=== PATIENT | male | born 1950 | race Hispanic/Latino ===

== ENCOUNTER → 2018-01-03 | Outpatient (CLI) | payer OTHER, MEDICARE ==
[~2018-01-03] MED LIST: ATOR40TA69 PO; FURO40TA5 PO; LISI-617 PO; LORA10TA7 PO; LOVA40TA2 PO; METF500T6 PO; METO50TA18 PO; POTA-79 PO; SPIR50TA3 PO
== END | disposition home or self-care (01) ==
LOC: SHCH 08:13
PROVIDERS: ATTEND Internal Medicine Cardiovascular Disease
DX: I73.9 Peripheral vascular disease, unspecified (principal)
CPT/HCPCS: 93925

== ENCOUNTER → 2018-01-04 | Outpatient (CLI) | payer OTHER, MEDICARE | END | disposition home or self-care (01) | LOC: SHCH 13:15 | PROVIDERS: ATTEND Internal Medicine Cardiovascular Disease | DX: I42.9 Cardiomyopathy, unspecified (principal); I50.9 Heart failure, unspecified; I73.9 Peripheral vascular disease, unspecified | CPT/HCPCS: 93306 ==

== ENCOUNTER → 2018-07-31 | Outpatient (CLI) | payer OTHER ==
[~2018-07-31] MED LIST changes: +METF-444 PO; -METF500T6 PO; -SPIR50TA3 PO; +SPIR50TA5 PO
== END | disposition home or self-care (01) ==
LOC: SHCH 14:08
PROVIDERS: ATTEND Internal Medicine Cardiovascular Disease
DX: I51.7 Cardiomegaly (principal); I50.9 Heart failure, unspecified
CPT/HCPCS: 93306

== ENCOUNTER → 2018-12-14 | Outpatient (CLI) | payer OTHER | END | disposition home or self-care (01) | LOC: SHCH 11:21 | PROVIDERS: ATTEND Internal Medicine Cardiovascular Disease | DX: I51.7 Cardiomegaly (principal); R06.09 Other forms of dyspnea; I20.9 Angina pectoris, unspecified; Z98.890 Other specified postprocedural states; Z95.1 Presence of aortocoronary bypass graft | CPT/HCPCS: 93306 ==

== ENCOUNTER → 2018-12-17 | Outpatient (CLI) | payer OTHER | END | disposition home or self-care (01) | LOC: SHCH 10:49 | PROVIDERS: ATTEND Internal Medicine Cardiovascular Disease | DX: I73.9 Peripheral vascular disease, unspecified (principal) | CPT/HCPCS: 93925 ==

== ENCOUNTER → 2018-12-20 | Outpatient (CLI) | payer OTHER ==
[~2018-12-20] MED LIST changes: +REGADENOSON 0.4 MG/5 ML PF SYG IVP SCH
== END | disposition home or self-care (01) ==
LOC: SHCH 08:29
PROVIDERS: ATTEND Internal Medicine Cardiovascular Disease
DX: I20.9 Angina pectoris, unspecified (principal); R06.09 Other forms of dyspnea
CPT/HCPCS: 78452; 93017; 96374; A9500 ×2; J2785 ×2

== ENCOUNTER → 2020-07-10 | Outpatient (CLI) | payer OTHER, MEDICARE | END | disposition home or self-care (01) | LOC: SHCH 08:01 | PROVIDERS: ATTEND Internal Medicine Cardiovascular Disease | DX: I25.89 Other forms of chronic ischemic heart disease (principal); I25.10 Atherosclerotic heart disease of native coronary artery without angina pectoris | CPT/HCPCS: 78452; 93017; 96374; A9500 ×2; J2785 ==

== ENCOUNTER → 2020-07-27 | Outpatient (CLI) | payer OTHER, MEDICARE ==
[~2020-07-27] MED LIST changes: -REGADENOSON 0.4 MG/5 ML PF SYG IVP SCH
== END | disposition home or self-care (01) ==
LOC: RAH 09:12
PROVIDERS: ATTEND Internal Medicine Cardiovascular Disease
DX: I25.5 Ischemic cardiomyopathy (principal)
CPT/HCPCS: 93306; 93356

== ENCOUNTER 2020-09-28 05:54 | Observation (INO) | payer OTHER, MEDICARE ==
[2020-09-25 11:19] LABS: BASOPHILS % (AUTO) 0.6 % (0.0-5.0); EOSINOPHILS % (AUTO) 4.4 % (0.0-8.0); HEMATOCRIT 37.6 % (42-54); LYMPHOCYTES % (AUTO) 20.5 % (21.0-51.0); MEAN CORPUSCULAR HEMOGLOBIN 28.5 pg (27.0-33.0); MEAN CORPUSCULAR HGB CONC 32.2 g/dL (32.0-36.0); MEAN CORPUSCULAR VOLUME 88.7 fL (79-99); MONOCYTES % (AUTO) 8.2 % (3.0-13.0); NEUTROPHILS % (AUTO) 66.1 % (40.0-77.0); PLATELET COUNT (AUTO) 192 K/uL (130-400); RED BLOOD CELL COUNT(AUTO) 4.24 MIL/uL (4.50-6.20); RED CELL DISTRIBUTION WIDTH 13.8 % (11.0-15.5); WHITE BLOOD COUNT (AUTO) 5.3 K/uL (4.8-10.8)
[2020-09-25 11:25] LABS: CREATININE 1.2 mg/dL (0.5-1.5); POTASSIUM 4.5 mmol/L (3.5-5.1)
[2020-09-25 11:39] LABS: INR 1.72 (0.85-1.15); PARTIAL THROMBOPLASTIN TIME 32.9 SEC (26.3-35.5); PROTHROMBIN TIME 18.2 SEC (9.6-11.6)
[2020-09-25 15:52] VITALS: BP 93/64
[~2020-09-28] VITALS: Ht 168.9 cm; Wt 102.6 kg
[2020-09-28] VITALS (11 sets, daily range): BP systolic 87–102; BP diastolic 50–68
[~2020-09-28 05:54] MED LIST changes: +ASPI-1443 PO; -ATOR40TA69 PO; +FURO20TA4 PO; -FURO40TA5 PO; -LISI-617 PO; -LORA10TA7 PO; -LOVA40TA2 PO; +METO-408 PO; -METO50TA18 PO; +METO5TAB7 PO; +MONT10TA96 PO; +NITR0.4T50 SL; +OMEP40CA13 PO; -POTA-79 PO; +ROSU5TAB12 PO; +SACU1TAB PO; +WARF-57 PO; +gabapentin PO
[2020-09-28] MEDS ORDERED: CEFAZOLIN SODIUM 1 GM VIAL IVP SCH (06:00)
[2020-09-28] MEDS ORDERED: SODIUM CHLORIDE 0.9% 1000ML 1,000 ML IV ONE (06:21)
[2020-09-28 06:46] LABS: INR 1.25 (0.85-1.15); PROTHROMBIN TIME 13.4 SEC (9.6-11.6)
[2020-09-28] MEDS ORDERED: CEFAZOLIN SODIUM 1 GM VIAL ONE (07:23)
[2020-09-28] MEDS ORDERED: MIDAZOLAM HCL 1 MG/ML 2ML VIAL ONE ×2 (07:23→08:14)
[2020-09-28] MEDS ORDERED: BUPIVACAINE/PF 0.25% 30ML VIAL IJ ONE (07:23)
[2020-09-28] MEDS ORDERED: LIDOCAINE HCL 1% MDV 50ML VIAL ONE (07:24)
[2020-09-28] MEDS ORDERED: MEPERIDINE-PF 25 MG/ML SYG ONE ×2 (07:24→08:14)
[2020-09-28] MEDS ORDERED: IODIXANOL 320 MG/ML 100 ML VIAL ONE (07:44)
[2020-09-28] MEDS ORDERED: ACETAMINOPHEN-CODEINE 300/30MG TAB PO PRN (10:00)
[2020-09-28] MEDS: VALSARTAN PO SCH ×2 (10:43→19:49)
[2020-09-28] MEDS: SACUBITRIL PO SCH ×2 (10:43→19:49)
[2020-09-28] MEDS: METOPROLOL SUCCINATE 12.5 MG PO SCH (10:49)
[2020-09-28] MEDS: GABAPENTIN 300 MG CAPSULE PO SCH ×2 (16:05→19:49)
[2020-09-28] MEDS: PANTOPRAZOLE SODIUM 40 MG TABLET.DR PO SCH (16:06)
[2020-09-28] MEDS: SPIRONOLACTONE 25 MG TAB PO SCH (16:06)
[2020-09-28] MEDS ORDERED: WARFARIN SODIUM 5 MG TAB PO SCH (17:00)
[2020-09-28] MEDS ORDERED: MONTELUKAST SODIUM 10 MG TAB PO SCH (21:00)
[2020-09-29 00:36] VITALS: BP 114/65
[2020-09-29 03:51] VITALS: BP 105/62
[2020-09-29 06:22] LABS: BASOPHILS % (AUTO) 0.5 % (0.0-5.0); EOSINOPHILS % (AUTO) 4.1 % (0.0-8.0); HEMATOCRIT 36.8 % (42-54); LYMPHOCYTES % (AUTO) 18.3 % (21.0-51.0); MEAN CORPUSCULAR HEMOGLOBIN 28.2 pg (27.0-33.0); MEAN CORPUSCULAR HGB CONC 32.6 g/dL (32.0-36.0); MEAN CORPUSCULAR VOLUME 86.6 fL (79-99); MONOCYTES % (AUTO) 10.7 % (3.0-13.0); NEUTROPHILS % (AUTO) 66.1 % (40.0-77.0); PLATELET COUNT (AUTO) 203 K/uL (130-400); RED BLOOD CELL COUNT(AUTO) 4.25 MIL/uL (4.50-6.20); RED CELL DISTRIBUTION WIDTH 13.5 % (11.0-15.5); WHITE BLOOD COUNT (AUTO) 5.9 K/uL (4.8-10.8)
[2020-09-29 06:31] LABS: POTASSIUM 3.8 mmol/L (3.5-5.1)
[2020-09-29 07:07] LABS: INR 1.14 (0.85-1.15); PROTHROMBIN TIME 12.3 SEC (9.6-11.6)
[2020-09-29] MEDS: SPIRONOLACTONE 25 MG TAB PO SCH (08:08)
[2020-09-29] MEDS: PANTOPRAZOLE SODIUM 40 MG TABLET.DR PO SCH (08:08)
[2020-09-29] MEDS: GABAPENTIN 300 MG CAPSULE PO SCH (08:08)
[2020-09-29] MEDS ORDERED: METOLAZONE 2.5 MG TABLET PO SCH (08:30)
[2020-09-29 08:36] VITALS: BP 112/72
[2020-09-29] MEDS ORDERED: ASPIRIN 81 MG EC TAB PO SCH (09:00)
[2020-09-29] MEDS: SACUBITRIL PO SCH (09:00)
[2020-09-29] MEDS: METOPROLOL SUCCINATE 12.5 MG PO SCH (09:00)
[2020-09-29] MEDS ORDERED: FUROSEMIDE 20 MG TABLET PO SCH (09:00)
[2020-09-29] MEDS ORDERED: ATORVASTATIN CALCIUM 10 MG TABLET PO SCH (09:00)
[2020-09-29] MEDS ORDERED: SPIRONOLACTONE 25 MG PO SCH (09:00)
[2020-09-29] MEDS: VALSARTAN PO SCH (09:00)
[2020-09-29 13:08] VITALS: BP 110/59
== END 2020-09-29 15:30 | disposition home or self-care (01) ==
LOC: DAH 05:54 → 4DH 05:55 → DAH 05:55
PROVIDERS: ADMIT Internal Medicine; ATTEND Internal Medicine
DX: I49.5 Sick sinus syndrome (principal); I25.5 Ischemic cardiomyopathy; I11.0 Hypertensive heart disease with heart failure; I50.22 Chronic systolic (congestive) heart failure; I48.0 Paroxysmal atrial fibrillation; I45.10 Unspecified right bundle-branch block; I25.2 Old myocardial infarction; I25.10 Atherosclerotic heart disease of native coronary artery without angina pectoris; E78.5 Hyperlipidemia, unspecified; E11.9 Type 2 diabetes mellitus without complications; Z87.891 Personal history of nicotine dependence; Z86.73 Personal history of transient ischemic attack (TIA), and cerebral infarction without residual deficits; Z95.1 Presence of aortocoronary bypass graft; Z95.5 Presence of coronary angioplasty implant and graft; Z79.899 Other long term (current) drug therapy
CPT/HCPCS: 33208; 33225; 36415 ×3; 71045; 80048 ×2; 82948 ×6; 85025 ×2; 85610 ×3; 85730; 96360; 96361 ×2; A4215; A4216; A4221; A4222; A4223 ×3; A4606; A4663; C1769; C1898 ×2; C1900; C2621; G0378 ×29; J0690; J2175 ×2; J2250 ×2; J3490 ×2; J7030; Q9967; 99156; 99157

== ENCOUNTER 2020-11-10 07:28 | Day surgery (SDC) | payer OTHER, MEDICARE ==
[~2020-11-10] VITALS: Ht 167.6 cm; Wt 97.5 kg
[2020-11-10] VITALS (9 sets, daily range): BP systolic 80–126; BP diastolic 52–61
[2020-11-10] MEDS ORDERED: VITAD50000 PO (09:03)
[2020-11-10] MEDS ORDERED: SITA50TA PO (09:03)
[2020-11-10] MEDS ORDERED: FERROUS SULFATE PO (09:03)
[2020-11-10 09:09] LABS: INR 1.34 (0.85-1.15)
[2020-11-10] MEDS ORDERED: SODIUM CHLORIDE 0.9% 1000ML 1,000 ML IV ONE (09:09)
[2020-11-10] MEDS ORDERED: PROPOFOL 10 MG/ML 20ML VIAL IV ONE (09:52)
[2020-11-10] MEDS ORDERED: EPHEDRINE SULFATE 50 MG/ML AMPULE ONE (10:40)
== END 2020-11-10 11:35 | disposition home or self-care (01) ==
LOC: DAH 07:28 → ENDO 07:28
PROVIDERS: ATTEND Internal Medicine
DX: R19.5 Other fecal abnormalities (principal); K59.00 Constipation, unspecified; Z20.828 Contact with and (suspected) exposure to other viral communicable diseases; K57.30 Diverticulosis of large intestine without perforation or abscess without bleeding; K29.50 Unspecified chronic gastritis without bleeding; K21.9 Gastro-esophageal reflux disease without esophagitis; K31.89 Other diseases of stomach and duodenum; D64.9 Anemia, unspecified; I10 Essential (primary) hypertension; E11.9 Type 2 diabetes mellitus without complications; E78.49 Other hyperlipidemia; I48.0 Paroxysmal atrial fibrillation; I25.10 Atherosclerotic heart disease of native coronary artery without angina pectoris; I25.2 Old myocardial infarction; E78.00 Pure hypercholesterolemia, unspecified; Z79.899 Other long term (current) drug therapy; Z79.01 Long term (current) use of anticoagulants; Z86.010 Personal history of colon polyps; Z98.890 Other specified postprocedural states; Z95.1 Presence of aortocoronary bypass graft; Z86.73 Personal history of transient ischemic attack (TIA), and cerebral infarction without residual deficits; Z79.4 Long term (current) use of insulin; Z79.82 Long term (current) use of aspirin
CPT/HCPCS: 36415; 43239; 45378; 82948 ×2; 85610; 93005; A4215 ×2; A4221; A4222; A4223; A4606; A4620; A4657; A4663; C9803; J2704; J3490; J7030; U0003

== ENCOUNTER → 2020-12-03 | Outpatient (CLI) | payer OTHER, MEDICARE ==
[~2020-12-03] MED LIST changes: +FERROUS SULFATE PO; -METF-444 PO; +SITA50TA PO; +VITAD50000 PO
== END | disposition home or self-care (01) ==
LOC: RAH 11:28
PROVIDERS: ATTEND Internal Medicine Gastroenterology
DX: R14.0 Abdominal distension (gaseous) (principal)
CPT/HCPCS: 78264; A9541

== ENCOUNTER 2022-01-25 14:36 | Emergency (ER) | payer MEDICARE ==
[~2022-01-25] VITALS: Ht 167.6 cm; Wt 94.3 kg
[~2022-01-25 14:36] MED LIST changes: +MONT-39 PO; -MONT10TA96 PO; -OMEP40CA13 PO; +OMEP40CA21 PO
[2022-01-25 15:22] LABS: BASOPHILS % (AUTO) 0.8 % (0.0-5.0); EOSINOPHILS % (AUTO) 3.1 % (0.0-8.0); HEMATOCRIT 40.4 % (42-54); LYMPHOCYTES % (AUTO) 14.9 % (21.0-51.0); MEAN CORPUSCULAR HEMOGLOBIN 26.7 pg (27.0-33.0); MEAN CORPUSCULAR HGB CONC 32.9 g/dL (32.0-36.0); MEAN CORPUSCULAR VOLUME 81.1 fL (79-99); MONOCYTES % (AUTO) 14.4 % (3.0-13.0); NEUTROPHILS % (AUTO) 66.2 % (40.0-77.0); PLATELET COUNT (AUTO) 204 K/uL (130-400); RED BLOOD CELL COUNT(AUTO) 4.98 MIL/uL (4.50-6.20); RED CELL DISTRIBUTION WIDTH 16.1 % (11.0-15.5); WHITE BLOOD COUNT (AUTO) 5.2 K/uL (4.8-10.8)
[2022-01-25 15:34] LABS: CREATININE 1.6 mg/dL (0.5-1.5); POTASSIUM 3.9 mmol/L (3.5-5.1)
[2022-01-25 15:38] LABS: ALBUMIN 3.5 g/dL (3.5-5.0); BILIRUBIN,TOTAL 3.3 mg/dL (0.2-1.0); TOTAL PROTEIN, SERUM 6.4 g/dL (6.0-8.3)
[2022-01-25] MEDS ORDERED: FUROSEMIDE 40MG VIAL ONE (15:38)
[2022-01-25 15:46] LABS: B-TYPE NATRIURETIC PEPTIDE 349 pg/mL (0-100)
[2022-01-25] MEDS ORDERED: FUROSEMIDE 40MG VIAL IV ONE (16:00)
[2022-01-25 16:02] VITALS: BP 100/62
== END 2022-01-25 16:45 | disposition home or self-care (01) ==
LOC: EDH 14:36
DX: I11.0 Hypertensive heart disease with heart failure (principal); I50.9 Heart failure, unspecified; E11.9 Type 2 diabetes mellitus without complications; E78.00 Pure hypercholesterolemia, unspecified; Z79.899 Other long term (current) drug therapy; Z79.82 Long term (current) use of aspirin; Z79.01 Long term (current) use of anticoagulants; Z95.1 Presence of aortocoronary bypass graft
CPT/HCPCS: 36415; 71045; 80053; 83880; 84484; 85025; 87635; 93005; 96374; 99285; C9803; J1940

== ENCOUNTER 2022-06-14 09:39 | Observation (INO) | payer MEDICARE ==
[~2022-06-14] VITALS: Ht 170.2 cm; Wt 92.4 kg
[2022-06-14 11:08] LABS: HEMATOCRIT 43.1 % (42-54); MEAN CORPUSCULAR HEMOGLOBIN 27.1 pg (27.0-33.0); MEAN CORPUSCULAR HGB CONC 32.3 g/dL (32.0-36.0); PLATELET COUNT (AUTO) 151 K/uL (130-400); RED BLOOD CELL COUNT(AUTO) 5.13 MIL/uL (4.50-6.20); RED CELL DISTRIBUTION WIDTH 18.1 % (11.0-15.5); WHITE BLOOD COUNT (AUTO) 5.2 K/uL (4.8-10.8)
[2022-06-14] MEDS ORDERED: FAMO20TA8 PO (11:17)
[2022-06-14] MEDS ORDERED: SITA50TA PO (11:17)
[2022-06-14] MEDS ORDERED: FURO20TA4 PO (11:17)
[2022-06-14] MEDS ORDERED: CETI10TA57 PO (11:17)
[2022-06-14] MEDS ORDERED: ROSU10TA28 PO (11:17)
[2022-06-14] MEDS ORDERED: LUBI24CA9 PO (11:17)
[2022-06-14] MEDS ORDERED: SPIR25TA6 PO (11:17)
[2022-06-14] MEDS ORDERED: IBUP-2070 PO (11:17)
[2022-06-14 11:20] LABS: APPEARANCE,URINE CLEAR (CLEAR); BILIRUBIN,URINE NEGATIVE (NEGATIVE); COLOR,URINE YELLOW (YELLOW); GLUCOSE, URINE (UA) NEGATIVE (NEGATIVE); KETONES,URINE NEGATIVE (NEGATIVE); LEUKOCYTE ESTERASE ,URINE NEGATIVE (NEGATIVE); NITRATE,URINE NEGATIVE (NEGATIVE); OCCULT BLOOD,URINE TRACE-INTACT (NEGATIVE); PROTEIN,URINE TRACE mg/dL (NEGATIVE); UROBILINOGEN,URINE 0.2 mg/dL (0.2-1.0)
[2022-06-14 11:24] LABS: B-TYPE NATRIURETIC PEPTIDE 451 pg/mL (0-100)
[2022-06-14 11:26] LABS: BACTERIA,URINE Rare /HPF (None Seen); RBC,URINE 0-1 /HPF (0-1); SQUAMOUS EPITHELIAL CELL,UR Rare /HPF (0-2); WBC,URINE 0-1 /HPF (0-1)
[2022-06-14 11:26] LABS: CREATININE 1.4 mg/dL (0.5-1.5); POTASSIUM 3.6 mmol/L (3.5-5.1)
[2022-06-14] MEDS ORDERED: LACTULOSE 20 GM/30 ML UDCUP PO PRN (11:30)
[2022-06-14] MEDS ORDERED: ACETAMINOPHEN 325 MG TAB PO PRN ×2 (11:30)
[2022-06-14] MEDS ORDERED: NITROGLYCERIN 0.4 MG SL TAB SL PRN (11:30)
[2022-06-14] MEDS ORDERED: MAG/ALUM/SIMETH 30 ML UDCUP PO PRN (11:30)
[2022-06-14] MEDS ORDERED: ONDANSETRON 4MG INJ IV PRN (11:30)
[2022-06-14] MEDS ORDERED: DiphenhydrAMINE HCL 50 MG/ML VIAL IV PRN (11:30)
[2022-06-14] MEDS ORDERED: GUAIFENESIN-DM 200/20 MG 10 ML PO PRN (11:30)
[2022-06-14 11:38] LABS: ALBUMIN 3.8 g/dL (3.5-5.0); TOTAL PROTEIN, SERUM 7.2 g/dL (6.0-8.3)
[2022-06-14 13:03] LABS: INR 2.2 (0.85-1.15); PROTHROMBIN TIME 22.9 SEC (9.6-11.6)
[2022-06-14 13:04] LABS: PARTIAL THROMBOPLASTIN TIME 33.2 SEC (26.3-35.5)
[2022-06-14 14:25] VITALS: BP 102/71
[2022-06-14 16:45] VITALS: BP 112/71
[2022-06-14] MEDS ORDERED: FUROSEMIDE 40MG VIAL IV ONE (17:56)
[2022-06-14] MEDS ORDERED: NON-FORMULARY MEDICATION 1 EACH (Metolazone 5 MG) PO SCH (18:00)
[2022-06-14] MEDS: [UNRECOGNIZED DRUG - REMARK] MISC SCH ×3 (18:30→20:30)
[2022-06-14] MEDS ORDERED: GLUCAGON 1MG KIT 1 MG ML IM PRN (18:30)
[2022-06-14] MEDS ORDERED: DEXTROSE 50%-WATER 50 ML DISP.SYRIN IV PRN (18:30)
[2022-06-14 19:26] VITALS: BP 112/62
[2022-06-14] MEDS: GABAPENTIN 300 MG CAPSULE PO SCH (19:57)
[2022-06-14] MEDS: FAMOTIDINE 20MG TAB PO SCH (19:58)
[2022-06-14] MEDS ORDERED: FUROSEMIDE 20 MG TABLET PO SCH (21:00)
[2022-06-14] MEDS: INSULIN HUMULIN R 100 UNIT/ML 3ML SQ SCH (21:00)
[2022-06-14 23:24] VITALS: BP 120/72
[2022-06-15 03:19] VITALS: BP 111/90
[2022-06-15 04:59] LABS: HEMOGLOBIN A1C 6.8 % (4.0-6.0)
[2022-06-15] MEDS: INSULIN HUMULIN R 100 UNIT/ML 3ML SQ SCH ×4 (06:22→20:19)
[2022-06-15 06:32] LABS: HEMATOCRIT 34.3 % (42-54); MEAN CORPUSCULAR HEMOGLOBIN 31.6 pg (27.0-33.0); MEAN CORPUSCULAR HGB CONC 37.9 g/dL (32.0-36.0); MEAN CORPUSCULAR VOLUME 83.5 fL (79-99); PLATELET COUNT (AUTO) 164 K/uL (130-400); RED BLOOD CELL COUNT(AUTO) 4.11 MIL/uL (4.50-6.20); RED CELL DISTRIBUTION WIDTH 19.9 % (11.0-15.5); WHITE BLOOD COUNT (AUTO) 4.9 K/uL (4.8-10.8)
[2022-06-15 06:59] LABS: EOSINOPHILS % (MANUAL) 3 % (1-6); LYMPHOCYTES % (MANUAL) 27 % (22-44); MAN.DIFF COMMENT-IMPRESSION MANUAL DIFFERENTIAL; MONOCYTES % (MANUAL) 6 % (2-9); PLATELET MORPHOLOGY COMMENT ADEQUATE; SEGMENTED NEUTROPHILS % 64 % (40-70)
[2022-06-15 07:00] VITALS: BP 96/69
[2022-06-15 07:01] LABS: ALBUMIN 3.5 g/dL (3.5-5.0); CREATININE 1.2 mg/dL (0.5-1.5); POTASSIUM 3.9 mmol/L (3.5-5.1); TOTAL PROTEIN, SERUM 6.6 g/dL (6.0-8.3)
[2022-06-15] MEDS: METOLAZONE 2.5 MG TABLET PO SCH (10:05)
[2022-06-15] MEDS: FAMOTIDINE 20MG TAB PO SCH ×2 (10:05→20:10)
[2022-06-15] MEDS: GABAPENTIN 300 MG CAPSULE PO SCH ×2 (10:05→20:11)
[2022-06-15] MEDS: ATORVASTATIN 20 MG TABLET PO SCH (10:05)
[2022-06-15] MEDS: FUROSEMIDE 40 MG TABLET PO SCH (10:06)
[2022-06-15] MEDS: CETIRIZINE HCL 5 MG TABLET PO SCH (10:06)
[2022-06-15] MEDS: ASPIRIN 81 MG EC TAB PO SCH (10:06)
[2022-06-15] MEDS: METOPROLOL SUCCINATE 25 MG TAB.SR.24H PO SCH ×2 (10:07→10:13)
[2022-06-15] MEDS: [UNRECOGNIZED DRUG - REMARK] MISC SCH (10:08)
[2022-06-15] MEDS: LUBIPROSTONE 24 MCG CAP PO SCH ×2 (10:11→16:10)
[2022-06-15] MEDS: MONTELUKAST SODIUM 10 MG TAB PO SCH (10:12)
[2022-06-15 11:00] VITALS: BP 104/73
[2022-06-15 16:00] VITALS: BP 92/62
[2022-06-15] MEDS ORDERED: WARFARIN SODIUM 5 MG TAB PO SCH (16:00)
[2022-06-15 20:59] VITALS: BP 103/67
[2022-06-16 01:38] VITALS: BP 106/55
[2022-06-16 03:38] VITALS: BP 102/64
[2022-06-16] MEDS: INSULIN HUMULIN R 100 UNIT/ML 3ML SQ SCH ×2 (06:52→10:54)
[2022-06-16 08:30] VITALS: BP 108/71
[2022-06-16] MEDS: LUBIPROSTONE 24 MCG CAP PO SCH (09:11)
[2022-06-16] MEDS: CETIRIZINE HCL 5 MG TABLET PO SCH (09:12)
[2022-06-16] MEDS: FAMOTIDINE 20MG TAB PO SCH (09:12)
[2022-06-16] MEDS: GABAPENTIN 300 MG CAPSULE PO SCH (09:12)
[2022-06-16] MEDS: FUROSEMIDE 40 MG TABLET PO SCH (09:12)
[2022-06-16] MEDS: METOLAZONE 2.5 MG TABLET PO SCH (09:12)
[2022-06-16] MEDS: ATORVASTATIN 20 MG TABLET PO SCH (09:12)
[2022-06-16] MEDS: MONTELUKAST SODIUM 10 MG TAB PO SCH (09:15)
[2022-06-16] MEDS: ASPIRIN 81 MG EC TAB PO SCH (09:15)
[2022-06-16] MEDS: METOPROLOL SUCCINATE 25 MG TAB.SR.24H PO SCH (09:15)
[2022-06-16 12:00] VITALS: BP 105/63
[2022-06-21] MEDS ORDERED: **HM**(Cholecalciferol (Vitamin D3) 50,000 UNITS) PO SCH (09:00)
== END 2022-06-16 13:45 | disposition home or self-care (01) ==
LOC: EDH 09:39 → EDHIP 11:15 → INTOOBSV 11:15 → 2AH 11:45
PROVIDERS: ADMIT Internal Medicine; ATTEND Internal Medicine
DX: K74.60 Unspecified cirrhosis of liver (principal); I11.0 Hypertensive heart disease with heart failure; I50.20 Unspecified systolic (congestive) heart failure; I25.10 Atherosclerotic heart disease of native coronary artery without angina pectoris; I95.9 Hypotension, unspecified; I48.91 Unspecified atrial fibrillation; E11.9 Type 2 diabetes mellitus without complications; E78.5 Hyperlipidemia, unspecified; R18.8 Other ascites; Z79.01 Long term (current) use of anticoagulants; Z95.1 Presence of aortocoronary bypass graft; Z95.810 Presence of automatic (implantable) cardiac defibrillator; Z79.82 Long term (current) use of aspirin
CPT/HCPCS: 96374; 96375; 82550 ×4; 83874 ×4; 84484 ×4; 80053 ×2; 83880; 85027; 85610; 85730; 81001; 36415 ×2; 71045; 76705 ×2; 93005; 83036; 85025; 82948 ×5; J1200; J1940; G0378 ×23; 96361

== ENCOUNTER 2022-08-08 10:53 | Emergency (ER) | payer MEDICARE ==
[~2022-08-08] VITALS: Ht 167.6 cm; Wt 85.3 kg
[~2022-08-08 10:53] MED LIST changes: -ALBUMIN (HUMAN) 25% 200 ML IV SCH
[2022-08-08 11:25] LABS: BASOPHILS % (AUTO) 0.5 % (0.0-5.0); EOSINOPHILS % (AUTO) 0.9 % (0.0-8.0); HEMATOCRIT 46.3 % (42-54); MEAN CORPUSCULAR HEMOGLOBIN 26.1 pg (27.0-33.0); MEAN CORPUSCULAR HGB CONC 33.3 g/dL (32.0-36.0); MEAN CORPUSCULAR VOLUME 78.3 fL (79-99); MONOCYTES % (AUTO) 11.2 % (3.0-13.0); NEUTROPHILS % (AUTO) 74.7 % (40.0-77.0); PLATELET COUNT (AUTO) 157 K/uL (130-400); RED BLOOD CELL COUNT(AUTO) 5.91 MIL/uL (4.50-6.20); RED CELL DISTRIBUTION WIDTH 18.8 % (11.0-15.5); WHITE BLOOD COUNT (AUTO) 5.7 K/uL (4.8-10.8)
[2022-08-08 11:40] LABS: PARTIAL THROMBOPLASTIN TIME 54.5 SEC (26.3-35.5)
[2022-08-08 11:48] LABS: ALBUMIN 3.8 g/dL (3.5-5.0); B-TYPE NATRIURETIC PEPTIDE 879 pg/mL (0-100); CREATININE 2.3 mg/dL (0.5-1.5); POTASSIUM 3.2 mmol/L (3.5-5.1); TOTAL PROTEIN, SERUM 6.8 g/dL (6.0-8.3)
[2022-08-08 12:01] LABS: INR > 7.00 (0.85-1.15)
[2022-08-08 13:41] VITALS: BP 106/74
== END 2022-08-08 13:57 | disposition home or self-care (01) ==
LOC: EDH 10:53
DX: K72.10 Chronic hepatic failure without coma (principal); I11.0 Hypertensive heart disease with heart failure; I50.9 Heart failure, unspecified; E78.00 Pure hypercholesterolemia, unspecified; Z86.73 Personal history of transient ischemic attack (TIA), and cerebral infarction without residual deficits; Z98.890 Other specified postprocedural states; Z79.899 Other long term (current) drug therapy; Z79.84 Long term (current) use of oral hypoglycemic drugs; Z79.01 Long term (current) use of anticoagulants; Z79.82 Long term (current) use of aspirin; W19.XXXA Unspecified fall, initial encounter; Y93.89 Activity, other specified; Y92.89 Other specified places as the place of occurrence of the external cause; Y99.8 Other external cause status
CPT/HCPCS: 49083; 99285; 71045; 82550; 83874; 84484 ×2; 84157; 83880; 85025 ×2; 89051; 85610 ×2; 85730; 87071; 87076; 87205; 82042; 36415 ×2; 93005; 80053 ×2; P9046; C1729; 96365

== ENCOUNTER → 2022-08-08 | Outpatient (CLI) | payer MEDICARE ==
[~2022-08-08] MED LIST changes: +ALBUMIN (HUMAN) 25% 200 ML IV SCH; +CETI10TA57 PO; +FAMO20TA8 PO; +IBUP-2070 PO; +LUBI24CA9 PO; +ROSU10TA28 PO; -ROSU5TAB12 PO; -SACU1TAB PO; -SPIR50TA5 PO
[2022-08-08 08:39] LABS: BASOPHILS % (AUTO) 0.5 % (0.0-5.0); EOSINOPHILS % (AUTO) 0.8 % (0.0-8.0); HEMATOCRIT 50.6 % (42-54); LYMPHOCYTES % (AUTO) 11.8 % (21.0-51.0); MEAN CORPUSCULAR HEMOGLOBIN 25.8 pg (27.0-33.0); MEAN CORPUSCULAR HGB CONC 32.6 g/dL (32.0-36.0); MEAN CORPUSCULAR VOLUME 79.2 fL (79-99); MONOCYTES % (AUTO) 9.5 % (3.0-13.0); NEUTROPHILS % (AUTO) 77.1 % (40.0-77.0); PLATELET COUNT (AUTO) 175 K/uL (130-400); RED BLOOD CELL COUNT(AUTO) 6.39 MIL/uL (4.50-6.20); RED CELL DISTRIBUTION WIDTH 18.9 % (11.0-15.5); WHITE BLOOD COUNT (AUTO) 6.1 K/uL (4.8-10.8)
[2022-08-08 08:47] LABS: ALBUMIN 3.9 g/dL (3.5-5.0); CREATININE 2.2 mg/dL (0.5-1.5); POTASSIUM 3.4 mmol/L (3.5-5.1); TOTAL PROTEIN, SERUM 7.2 g/dL (6.0-8.3)
[2022-08-08 09:28] LABS: INR > 7.00 (0.85-1.15)
[2022-08-08 13:10] LABS: ALBUMIN,BODY FLUID 1.6 g/dL
[2022-08-08 21:35] LABS: APPEARANCE BODY FLUID CLOUDY (CLEAR); BODY FLUID WBC 66 /cu. mm.; COLOR,BODY FLUID ORANGE (LT YELLOW); SPECIMENTYPE,BODY FLUID ASCITES; TOTAL VOLUME,BODY FLUID 2300 mL
[2022-08-08 21:36] LABS: BODY FLUID RBC 20500 /cu. mm.
[2022-08-08 21:52] LABS: BF EOSINOPHIL 1 %; BF LYMPHOCYTE 42 %; BF MONOCYTE 1 %; BF OTHER CELLS 1
== END | disposition home or self-care (01) ==
LOC: RAH 07:45
PROVIDERS: ATTEND Internal Medicine Gastroenterology
DX: R18.8 Other ascites (principal); I11.0 Hypertensive heart disease with heart failure; I50.20 Unspecified systolic (congestive) heart failure; I25.10 Atherosclerotic heart disease of native coronary artery without angina pectoris; I48.91 Unspecified atrial fibrillation; E78.5 Hyperlipidemia, unspecified; E11.9 Type 2 diabetes mellitus without complications; Z79.01 Long term (current) use of anticoagulants; Z95.1 Presence of aortocoronary bypass graft; Z98.890 Other specified postprocedural states; Z79.82 Long term (current) use of aspirin
CPT/HCPCS: 49083; 84157; 80053; 85025; 89051; 85610; 87071; 87076; 87205; 82042; 36415; P9046; C1729; 96365

== ENCOUNTER 2022-09-09 11:13 | Inpatient (IN) | payer MEDICARE ==
[~2022-09-09] VITALS: Ht 167.6 cm; Wt 83.2 kg
[2022-09-09] MEDS ORDERED: NOREPINEPHRIN 4MG/NS 250ML 250 ML IV ONE (11:29)
[2022-09-09] MEDS ORDERED: NACL 0.9% IV PRN (11:30)
[2022-09-09] MEDS ORDERED: EPINEPHRINE IV PRN (11:30)
[2022-09-09] MEDS ORDERED: NOREPINEPHRIN 4MG/NS 250ML 250 ML IV PRN (12:00)
[2022-09-09 12:14] LABS: BASOPHILS % (AUTO) 0.7 % (0.0-5.0); EOSINOPHILS % (AUTO) 0.2 % (0.0-8.0); HEMATOCRIT 46.8 % (42-54); LYMPHOCYTES % (AUTO) 12.3 % (21.0-51.0); MEAN CORPUSCULAR HEMOGLOBIN 25.7 pg (27.0-33.0); MEAN CORPUSCULAR HGB CONC 34.4 g/dL (32.0-36.0); MEAN CORPUSCULAR VOLUME 74.8 fL (79-99); MONOCYTES % (AUTO) 14.7 % (3.0-13.0); NEUTROPHILS % (AUTO) 71.6 % (40.0-77.0); PLATELET COUNT (AUTO) 109 K/uL (130-400); RED BLOOD CELL COUNT(AUTO) 6.26 MIL/uL (4.50-6.20); RED CELL DISTRIBUTION WIDTH 21.5 % (11.0-15.5); WHITE BLOOD COUNT (AUTO) 5.9 K/uL (4.8-10.8)
[2022-09-09 12:25] LABS: INR 2.86 (0.85-1.15); PROTHROMBIN TIME 29.4 SEC (9.6-11.6)
[2022-09-09 12:27] LABS: PARTIAL THROMBOPLASTIN TIME 41.3 SEC (26.3-35.5)
[2022-09-09 12:44] LABS: ALBUMIN 3.5 g/dL (3.5-5.0); CREATININE 1.9 mg/dL (0.5-1.5); POTASSIUM 3.1 mmol/L (3.5-5.1)
[2022-09-09 12:47] LABS: B-TYPE NATRIURETIC PEPTIDE 1410 pg/mL (0-100)
[2022-09-09 15:41] LABS: APPEARANCE,URINE CLEAR (CLEAR); BILIRUBIN,URINE NEGATIVE (NEGATIVE); COLOR,URINE YELLOW (YELLOW); GLUCOSE, URINE (UA) NEGATIVE (NEGATIVE); KETONES,URINE NEGATIVE (NEGATIVE); LEUKOCYTE ESTERASE ,URINE NEGATIVE Leu/uL (NEGATIVE); NITRATE,URINE NEGATIVE (NEGATIVE); OCCULT BLOOD,URINE SMALL (NEGATIVE); PH,URINE 5.5 (5.0-8.0); PROTEIN,URINE 30 mg/dL (NEGATIVE)
[2022-09-09 15:53] LABS: BACTERIA,URINE RARE /HPF (None Seen); MUCUS,URINE RARE LPF (None Seen); SQUAMOUS EPITHELIAL CELL,UR RARE /HPF (0-2)
[2022-09-09] MEDS ORDERED: KCL 20 MEQ ERTAB PO ONE (16:00)
[2022-09-09] MEDS: INSULIN HUMULIN R 100 UNIT/ML 3ML SQ SCH ×2 (16:30→21:00)
[2022-09-09] MEDS ORDERED: IPRATROPIUM/ALBUTEROL SULFATE 3 ML SOLUTION IH PRN (16:30)
[2022-09-09 16:39] LABS: HEMOGLOBIN A1C 6.2 % (4.0-6.0)
[2022-09-09 16:45] LABS: CREATININE,URINE RANDOM 45 mg/dL (30-135); SODIUM,URINE RANDOM 16 mmol/l (40-220)
[2022-09-09 16:54] LABS: CRP QUANTITATIVE 19.2 mg/L (0.00-9.0); MAGNESIUM 2.6 mg/dL (1.80-2.40); THYROID STIMULATING HORMONE 4.99 uIU/mL (0.36-3.74)
[2022-09-09] MEDS: CEFEPIME HCL 2 GM VIAL IVP SCH (17:10)
[2022-09-09] MEDS: PANTOPRAZOLE 40 MG/VIAL IVP SCH (17:10)
[2022-09-09] MEDS: Vitamin B Complex/Vit C/Folic Acid PO SCH (17:11)
[2022-09-09] MEDS ORDERED: AMIODARONE 900MG VIAL 540 MG in DEXTROSE 5%-WATER 300 ML IV SCH (17:30)
[2022-09-09 19:34] LABS: ALBUMIN 3.4 g/dL (3.5-5.0); CREATININE 1.9 mg/dL (0.5-1.5); MAGNESIUM 2.6 mg/dL (1.80-2.40); POTASSIUM 3.2 mmol/L (3.5-5.1)
[2022-09-09] MEDS: ATORVASTATIN 20 MG TABLET PO SCH (21:06)
[2022-09-09] MEDS: MIDODRINE HCL 5 MG TABLET PO SCH (21:06)
[2022-09-10] VITALS (50 sets, daily range): BP systolic 62–113; BP diastolic 34–69
[2022-09-10] MEDS: METRONIDAZOLE 250MG/50ML 50 ML IV SCH ×3 (05:37→21:31)
[2022-09-10] MEDS: INSULIN HUMULIN R 100 UNIT/ML 3ML SQ SCH ×4 (07:30→20:00)
[2022-09-10] MEDS ORDERED: NOREPINEPHRIN 4MG/NS 250ML 250 ML IV SCH (07:30)
[2022-09-10 08:34] LABS: BASOPHILS % (AUTO) 0.5 % (0.0-5.0); EOSINOPHILS % (AUTO) 0.2 % (0.0-8.0); LYMPHOCYTES % (AUTO) 10.4 % (21.0-51.0); MEAN CORPUSCULAR HEMOGLOBIN 25.6 pg (27.0-33.0); MEAN CORPUSCULAR HGB CONC 33.3 g/dL (32.0-36.0); MEAN CORPUSCULAR VOLUME 76.8 fL (79-99); MONOCYTES % (AUTO) 10.9 % (3.0-13.0); NEUTROPHILS % (AUTO) 77.5 % (40.0-77.0); NUCLEATED RED BLOOD CELLS 0.3 % (0.0-0.19); PLATELET COUNT (AUTO) 88 K/uL (130-400); RED BLOOD CELL COUNT(AUTO) 5.47 MIL/uL (4.50-6.20); RED CELL DISTRIBUTION WIDTH 21.3 % (11.0-15.5); WHITE BLOOD COUNT (AUTO) 6.3 K/uL (4.8-10.8)
[2022-09-10 08:47] LABS: ALBUMIN 2.7 g/dL (3.5-5.0); CREATININE 1.8 mg/dL (0.5-1.5); TOTAL PROTEIN, SERUM 5.5 g/dL (6.0-8.3)
[2022-09-10 08:48] LABS: POTASSIUM 2.9 mmol/L (3.5-5.1)
[2022-09-10] MEDS: MIDODRINE HCL 5 MG TABLET PO SCH ×3 (08:48→20:00)
[2022-09-10 09:07] LABS: ABG BASE EXCESS 3.1 mmol/L (-2.0-3.0); ABG HCO3 26.2 mmol/L (21.0-28.0); ABG OXYGEN SATURATION 98.7 % (95.0-99.0); ABG PCO2 36 mmHg (35-48)
[2022-09-10 09:22] LABS: INR 3.21 (0.85-1.15); PROTHROMBIN TIME 32.8 SEC (9.6-11.6)
[2022-09-10 09:24] LABS: PARTIAL THROMBOPLASTIN TIME 49.1 SEC (26.3-35.5)
[2022-09-10] MEDS ORDERED: MILRINONE-D5W 20 MG/100 ML 100 ML IV SCH (09:30)
[2022-09-10] MEDS ORDERED: PHARMACY COMMUNICATION MISC SCH (10:00)
[2022-09-10] MEDS: POTASSIUM CHLORIDE 20MEQ/100ML 100 ML IV PRN ×6 (10:08→22:37)
[2022-09-10] MEDS ORDERED: ENOXAPARIN SODIUM 80 MG/0.8 ML SQ SCH (10:15)
[2022-09-10] MEDS: 0.9%NACL 1000ML 1,000 ML IV SCH ×2 (10:29→23:39)
[2022-09-10] MEDS ORDERED: NOREPINEPHRINE BITARTRATE 1 MG/1 ML ML IV ONE (11:28)
[2022-09-10] MEDS ORDERED: AMIODARONE IV SCH (11:30)
[2022-09-10] MEDS ORDERED: DEXTROSE 5% IV SCH (11:30)
[2022-09-10] MEDS ORDERED: WATER IV SCH (11:30)
[2022-09-10] MEDS: PANTOPRAZOLE 40 MG/VIAL IVP SCH (16:27)
[2022-09-10] MEDS: Vitamin B Complex/Vit C/Folic Acid PO SCH (16:27)
[2022-09-10] MEDS: CEFEPIME HCL 2 GM VIAL IVP SCH (16:27)
[2022-09-10 16:33] LABS: ALBUMIN 2.4 g/dL (3.5-5.0); CREATININE 1.6 mg/dL (0.5-1.5); MAGNESIUM 1.9 mg/dL (1.80-2.40)
[2022-09-10 16:41] LABS: POTASSIUM 2.9 mmol/L (3.5-5.1)
[2022-09-10] MEDS: PHENYLEPHRINE HCL 100 MG in 0.9% NACL 250ML 250 ML IV SCH (16:43)
[2022-09-10 17:30] LABS: ALCOHOL, BLOOD < 3 mg/dL (0-10); CREATINE KINASE, TOTAL 173 U/L (21-232)
[2022-09-10] MEDS ORDERED: NOREPINEPHRINE BITARTRATE 32 MG in 0.9% NACL 250ML 250 ML IV PRN (17:30)
[2022-09-10] MEDS: ATORVASTATIN 20 MG TABLET PO SCH (20:00)
[2022-09-10 20:33] LABS: ALBUMIN 2.2 g/dL (3.5-5.0); CREATININE 1.4 mg/dL (0.5-1.5); POTASSIUM 3.5 mmol/L (3.5-5.1); TOTAL PROTEIN, SERUM 4.7 g/dL (6.0-8.3)
[2022-09-11] VITALS (95 sets, daily range): BP systolic 75–159; BP diastolic 37–113
[2022-09-11] MEDS: PHENYLEPHRINE HCL 100 MG in 0.9% NACL 250ML 250 ML IV SCH ×3 (01:12→17:44)
[2022-09-11 04:09] LABS: BASOPHILS % (AUTO) 0.4 % (0.0-5.0); HEMATOCRIT 44.3 % (42-54); LYMPHOCYTES % (AUTO) 8.9 % (21.0-51.0); MEAN CORPUSCULAR HEMOGLOBIN 26.1 pg (27.0-33.0); MEAN CORPUSCULAR HGB CONC 34.3 g/dL (32.0-36.0); MEAN CORPUSCULAR VOLUME 76.1 fL (79-99); MONOCYTES % (AUTO) 13.5 % (3.0-13.0); NEUTROPHILS % (AUTO) 76.8 % (40.0-77.0); PLATELET COUNT (AUTO) 95 K/uL (130-400); RED BLOOD CELL COUNT(AUTO) 5.82 MIL/uL (4.50-6.20); RED CELL DISTRIBUTION WIDTH 21.9 % (11.0-15.5); WHITE BLOOD COUNT (AUTO) 7.6 K/uL (4.8-10.8)
[2022-09-11 04:34] LABS: INR 2.6 (0.85-1.15); PROTHROMBIN TIME 26.8 SEC (9.6-11.6)
[2022-09-11 04:35] LABS: PARTIAL THROMBOPLASTIN TIME 50.9 SEC (26.3-35.5)
[2022-09-11 04:37] LABS: ALANINE AMINOTRANSFERASE 54 U/L (12-78); ALBUMIN 2.3 g/dL (3.5-5.0); ASPARTATE AMINOTRANSFERASE 86 U/L (10-37); CARBON DIOXIDE 26 mmol/L (21-32); CHLORIDE 96 mmol/L (101-111); CREATININE 1.5 mg/dL (0.5-1.5); GLOMERULAR FILTR. RATE CALC 49 mL/min (>60); GLUCOSE,RANDOM 56 mg/dL (70-105); POTASSIUM 3.4 mmol/L (3.5-5.1); SODIUM SERUM 130 mmol/L (136-145); TOTAL PROTEIN, SERUM 4.9 g/dL (6.0-8.3); UREA NITROGEN, BLOOD 39 mg/dL (7-18)
[2022-09-11 04:40] LABS: AMMONIA < 10 umol/L (11-32)
[2022-09-11 05:17] LABS: B-TYPE NATRIURETIC PEPTIDE 798 pg/mL (0-100)
[2022-09-11] MEDS: MAGNESIUM 2GM PREMIX 50ML 50 ML IV PRN (05:18)
[2022-09-11] MEDS: POTASSIUM CHLORIDE 20MEQ/100ML 100 ML IV PRN (05:19)
[2022-09-11] MEDS: METRONIDAZOLE 250MG/50ML 50 ML IV SCH ×3 (05:20→21:27)
[2022-09-11] MEDS ORDERED: PHARMACY COMMUNICATION MISC SCH (06:00)
[2022-09-11] MEDS: INSULIN HUMULIN R 100 UNIT/ML 3ML SQ SCH ×4 (07:30→20:21)
[2022-09-11 07:49] LABS: ABG BASE EXCESS 0.1 mmol/L (-2.0-3.0); ABG HCO3 23.9 mmol/L (21.0-28.0); ABG OXYGEN SATURATION 98.6 % (95.0-99.0); ABG PCO2 36 mmHg (35-48)
[2022-09-11] MEDS: MIDODRINE HCL 5 MG TABLET PO SCH ×3 (08:07→20:09)
[2022-09-11] MEDS ORDERED: GLUCAGON 1MG KIT 1 MG ML IM PRN (08:30)
[2022-09-11] MEDS ORDERED: DEXTROSE 50%-WATER 50 ML DISP.SYRIN IV PRN (08:30)
[2022-09-11] MEDS ORDERED: LACTULOSE 20 GM/30 ML UDCUP PO SCH (09:00)
[2022-09-11] MEDS ORDERED: FUROSEMIDE 20MG VIAL IV ONE (15:30)
[2022-09-11] MEDS: CEFEPIME HCL 2 GM VIAL IVP SCH (16:16)
[2022-09-11] MEDS: Vitamin B Complex/Vit C/Folic Acid PO SCH (16:16)
[2022-09-11] MEDS: PANTOPRAZOLE 40 MG/VIAL IVP SCH (16:16)
[2022-09-11] MEDS: ATORVASTATIN 20 MG TABLET PO SCH (20:09)
[2022-09-11] MEDS: LACTULOSE 20 GM/30 ML UDCUP PO SCH (20:09)
[2022-09-12] VITALS (78 sets, daily range): BP systolic 83–125; BP diastolic 38–102
[2022-09-12] MEDS: PHENYLEPHRINE HCL 100 MG in 0.9% NACL 250ML 250 ML IV SCH ×3 (03:44→21:53)
[2022-09-12] MEDS: METRONIDAZOLE 250MG/50ML 50 ML IV SCH ×3 (05:25→21:06)
[2022-09-12 05:32] LABS: HEMATOCRIT 50.4 % (42-54); MEAN CORPUSCULAR HEMOGLOBIN 25.7 pg (27.0-33.0); MEAN CORPUSCULAR HGB CONC 32.9 g/dL (32.0-36.0); RED BLOOD CELL COUNT(AUTO) 6.46 MIL/uL (4.50-6.20); RED CELL DISTRIBUTION WIDTH 23.1 % (11.0-15.5); WHITE BLOOD COUNT (AUTO) 8.5 K/uL (4.8-10.8)
[2022-09-12 06:14] LABS: ALBUMIN 3.2 g/dL (3.5-5.0); BILIRUBIN,DIRECT 5.7 mg/dL (0.0-0.3); CREATININE 1.9 mg/dL (0.5-1.5); MAGNESIUM 2.8 mg/dL (1.80-2.40); POTASSIUM 4.7 mmol/L (3.5-5.1); TOTAL PROTEIN, SERUM 6.9 g/dL (6.0-8.3)
[2022-09-12] MEDS ORDERED: 0.9% NACL 500ML IV.SOLN 500 ML IV SCH (06:30)
[2022-09-12] MEDS: INSULIN HUMULIN R 100 UNIT/ML 3ML SQ SCH ×4 (06:44→20:07)
[2022-09-12 06:48] LABS: INR 2.76 (0.85-1.15); PROTHROMBIN TIME 28.4 SEC (9.6-11.6)
[2022-09-12] MEDS: LACTULOSE 20 GM/30 ML UDCUP PO SCH ×2 (08:18→20:59)
[2022-09-12] MEDS: ASPIRIN 81MG CHEW TAB PO SCH (08:19)
[2022-09-12] MEDS: MIDODRINE HCL 5 MG TABLET PO SCH ×3 (08:19→21:00)
[2022-09-12] MEDS: Vitamin B Complex/Vit C/Folic Acid PO SCH (16:16)
[2022-09-12] MEDS: PANTOPRAZOLE 40 MG/VIAL IVP SCH (16:16)
[2022-09-12] MEDS: CEFEPIME HCL 2 GM VIAL IVP SCH (16:16)
[2022-09-12] MEDS: ATORVASTATIN 20 MG TABLET PO SCH (20:59)
[2022-09-13] VITALS (43 sets, daily range): BP systolic 84–118; BP diastolic 38–77
[2022-09-13] MEDS: FUROSEMIDE 20MG VIAL IV SCH ×2 (00:39→13:39)
[2022-09-13 04:08] LABS: HEMATOCRIT 48.7 % (42-54); MEAN CORPUSCULAR HEMOGLOBIN 25.7 pg (27.0-33.0); MEAN CORPUSCULAR HGB CONC 33.1 g/dL (32.0-36.0); MEAN CORPUSCULAR VOLUME 77.8 fL (79-99); NUCLEATED RED BLOOD CELLS 0.3 % (0.0-0.19); RED BLOOD CELL COUNT(AUTO) 6.26 MIL/uL (4.50-6.20); RED CELL DISTRIBUTION WIDTH 22.8 % (11.0-15.5)
[2022-09-13 04:18] LABS: MAGNESIUM 2.6 mg/dL (1.80-2.40); POTASSIUM 4.7 mmol/L (3.5-5.1)
[2022-09-13] MEDS ORDERED: PHENYLEPHRINE HCL 10 MG/ML 5ML VIAL IV ONE (04:45)
[2022-09-13] MEDS: METRONIDAZOLE 250MG/50ML 50 ML IV SCH ×3 (06:11→22:07)
[2022-09-13] MEDS: INSULIN HUMULIN R 100 UNIT/ML 3ML SQ SCH ×4 (06:14→19:54)
[2022-09-13] MEDS: PHENYLEPHRINE HCL 100 MG in 0.9% NACL 250ML 250 ML IV SCH (07:04)
[2022-09-13] MEDS: LACTULOSE 20 GM/30 ML UDCUP PO SCH (08:02)
[2022-09-13] MEDS: ASPIRIN 81MG CHEW TAB PO SCH (08:02)
[2022-09-13] MEDS: MIDODRINE HCL 5 MG TABLET PO SCH ×3 (08:56→19:44)
[2022-09-13] MEDS: CEFEPIME HCL 2 GM VIAL IVP SCH (17:34)
[2022-09-13] MEDS: Vitamin B Complex/Vit C/Folic Acid PO SCH (17:34)
[2022-09-13] MEDS: PANTOPRAZOLE 40 MG/VIAL IVP SCH (17:37)
[2022-09-13] MEDS ORDERED: 0.9%NACL 100ML 100 ML ONE (17:39)
[2022-09-13] MEDS: DOBUTAMINE 250MG/D5 250ML 250 ML IV SCH (19:10)
[2022-09-13] MEDS: ATORVASTATIN 20 MG TABLET PO SCH (19:44)
[2022-09-14] VITALS (33 sets, daily range): BP systolic 76–153; BP diastolic 43–74
[2022-09-14] MEDS: FUROSEMIDE 20MG VIAL IV SCH ×3 (00:54→23:55)
[2022-09-14 04:18] LABS: HEMATOCRIT 40.4 % (42-54); MEAN CORPUSCULAR HEMOGLOBIN 25.5 pg (27.0-33.0); MEAN CORPUSCULAR HGB CONC 33.7 g/dL (32.0-36.0); MEAN CORPUSCULAR VOLUME 75.8 fL (79-99); PLATELET COUNT (AUTO) 57 K/uL (130-400); RED BLOOD CELL COUNT(AUTO) 5.33 MIL/uL (4.50-6.20); WHITE BLOOD COUNT (AUTO) 4.7 K/uL (4.8-10.8)
[2022-09-14 04:33] LABS: CARBON DIOXIDE 29 mmol/L (21-32); CREATININE 1.6 mg/dL (0.5-1.5); GLOMERULAR FILTR. RATE CALC 46 mL/min (>60); GLUCOSE,RANDOM 97 mg/dL (70-105); SODIUM SERUM 124 mmol/L (136-145); UREA NITROGEN, BLOOD 31 mg/dL (7-18)
[2022-09-14 04:40] LABS: AMMONIA < 10 umol/L (11-32); CHLORIDE 88 mmol/L (101-111); POTASSIUM 2.8 mmol/L (3.5-5.1)
[2022-09-14] MEDS: INSULIN HUMULIN R 100 UNIT/ML 3ML SQ SCH ×4 (05:19→19:42)
[2022-09-14] MEDS: POTASSIUM CHLORIDE 20MEQ/100ML 100 ML IV PRN ×4 (05:30→19:24)
[2022-09-14] MEDS: METRONIDAZOLE 250MG/50ML 50 ML IV SCH ×3 (05:55→21:27)
[2022-09-14] MEDS: DOBUTAMINE 250MG/D5 250ML 250 ML IV SCH ×2 (06:44→18:57)
[2022-09-14] MEDS: MIDODRINE HCL 5 MG TABLET PO SCH ×3 (09:22→19:23)
[2022-09-14] MEDS: ASPIRIN 81MG CHEW TAB PO SCH (09:22)
[2022-09-14] MEDS: PANTOPRAZOLE 40 MG/VIAL IVP SCH (14:59)
[2022-09-14] MEDS: CEFEPIME HCL 2 GM VIAL IVP SCH (14:59)
[2022-09-14] MEDS: Vitamin B Complex/Vit C/Folic Acid PO SCH (15:00)
[2022-09-14 16:11] LABS: CREATININE 1.7 mg/dL (0.5-1.5)
[2022-09-14 16:15] LABS: POTASSIUM 2.9 mmol/L (3.5-5.1)
[2022-09-14] MEDS: ATORVASTATIN 20 MG TABLET PO SCH (19:22)
[2022-09-14] MEDS: MAGNESIUM 2GM PREMIX 50ML 50 ML IV PRN (19:22)
[2022-09-14 23:19] LABS: MAGNESIUM 2.2 mg/dL (1.80-2.40); POTASSIUM 3.4 mmol/L (3.5-5.1)
[2022-09-15] VITALS (20 sets, daily range): BP systolic 78–146; BP diastolic 40–78
[2022-09-15 04:18] LABS: HEMATOCRIT 41.3 % (42-54); MEAN CORPUSCULAR HEMOGLOBIN 25.5 pg (27.0-33.0); MEAN CORPUSCULAR HGB CONC 34.1 g/dL (32.0-36.0); MEAN CORPUSCULAR VOLUME 74.7 fL (79-99); RED BLOOD CELL COUNT(AUTO) 5.53 MIL/uL (4.50-6.20); WHITE BLOOD COUNT (AUTO) 4.1 K/uL (4.8-10.8)
[2022-09-15 04:39] LABS: CREATININE 1.6 mg/dL (0.5-1.5); POTASSIUM 3.2 mmol/L (3.5-5.1)
[2022-09-15] MEDS: METRONIDAZOLE 250MG/50ML 50 ML IV SCH ×3 (05:25→21:41)
[2022-09-15] MEDS: INSULIN HUMULIN R 100 UNIT/ML 3ML SQ SCH ×4 (05:25→21:00)
[2022-09-15] MEDS: POTASSIUM CHLORIDE 20MEQ/100ML 100 ML IV PRN ×2 (06:13→10:43)
[2022-09-15] MEDS: DOBUTAMINE 250MG/D5 250ML 250 ML IV SCH ×2 (06:48→18:51)
[2022-09-15] MEDS: ASPIRIN 81MG CHEW TAB PO SCH (07:55)
[2022-09-15] MEDS: MIDODRINE HCL 5 MG TABLET PO SCH ×3 (07:55→21:40)
[2022-09-15] MEDS: FUROSEMIDE 20 MG TABLET PO SCH ×2 (07:55→15:28)
[2022-09-15] MEDS: CEFEPIME HCL 2 GM VIAL IVP SCH (15:25)
[2022-09-15] MEDS: PANTOPRAZOLE 40 MG/VIAL IVP SCH (15:25)
[2022-09-15] MEDS: Vitamin B Complex/Vit C/Folic Acid PO SCH (15:25)
[2022-09-15] MEDS: ATORVASTATIN 20 MG TABLET PO SCH (21:40)
[2022-09-16] VITALS (7 sets, daily range): BP systolic 86–108; BP diastolic 57–68
[2022-09-16 03:34] LABS: HEMATOCRIT 40.8 % (42-54); MEAN CORPUSCULAR HEMOGLOBIN 25.8 pg (27.0-33.0); MEAN CORPUSCULAR HGB CONC 34.8 g/dL (32.0-36.0); PLATELET COUNT (AUTO) 56 K/uL (130-400); RED BLOOD CELL COUNT(AUTO) 5.51 MIL/uL (4.50-6.20); WHITE BLOOD COUNT (AUTO) 4.2 K/uL (4.8-10.8)
[2022-09-16 03:41] LABS: CREATININE 1.7 mg/dL (0.5-1.5); POTASSIUM 3.4 mmol/L (3.5-5.1)
[2022-09-16] MEDS: DOBUTAMINE 250MG/D5 250ML 250 ML IV SCH (04:59)
[2022-09-16] MEDS: METRONIDAZOLE 250MG/50ML 50 ML IV SCH ×3 (05:01→22:19)
[2022-09-16] MEDS: POTASSIUM CHLORIDE 20MEQ/100ML 100 ML IV PRN (06:01)
[2022-09-16] MEDS: INSULIN HUMULIN R 100 UNIT/ML 3ML SQ SCH ×4 (06:34→20:10)
[2022-09-16] MEDS: MIDODRINE HCL 5 MG TABLET PO SCH ×3 (08:23→19:44)
[2022-09-16] MEDS: ASPIRIN 81MG CHEW TAB PO SCH (08:24)
[2022-09-16] MEDS: FUROSEMIDE 20 MG TABLET PO SCH ×2 (08:24→16:12)
[2022-09-16] MEDS ORDERED: COMPOUND IV MISC 1 EACH IVSOLN MISC PRN (12:00)
[2022-09-16] MEDS: CEFEPIME HCL 2 GM VIAL IVP SCH (16:12)
[2022-09-16] MEDS: Vitamin B Complex/Vit C/Folic Acid PO SCH (16:12)
[2022-09-16] MEDS: PANTOPRAZOLE 40 MG/VIAL IVP SCH (16:12)
[2022-09-16] MEDS: ATORVASTATIN 20 MG TABLET PO SCH (19:44)
[2022-09-17 02:54] VITALS: BP 106/70
[2022-09-17 03:20] LABS: HEMATOCRIT 43.5 % (42-54); MEAN CORPUSCULAR HEMOGLOBIN 25.4 pg (27.0-33.0); MEAN CORPUSCULAR HGB CONC 34.7 g/dL (32.0-36.0); MEAN CORPUSCULAR VOLUME 73.1 fL (79-99); PLATELET COUNT (AUTO) 59 K/uL (130-400); RED BLOOD CELL COUNT(AUTO) 5.95 MIL/uL (4.50-6.20); RED CELL DISTRIBUTION WIDTH 22.6 % (11.0-15.5); WHITE BLOOD COUNT (AUTO) 5.3 K/uL (4.8-10.8)
[2022-09-17 03:31] LABS: INR 2.21 (0.85-1.15)
[2022-09-17 03:33] LABS: PARTIAL THROMBOPLASTIN TIME 47.3 SEC (26.3-35.5)
[2022-09-17 03:41] LABS: ALBUMIN 2.7 g/dL (3.5-5.0); CREATININE 2.1 mg/dL (0.5-1.5)
[2022-09-17 03:52] LABS: BILIRUBIN,DIRECT 10.9 mg/dL (0.0-0.3)
[2022-09-17] MEDS: METRONIDAZOLE 250MG/50ML 50 ML IV SCH ×3 (05:05→22:05)
[2022-09-17] MEDS: INSULIN HUMULIN R 100 UNIT/ML 3ML SQ SCH ×4 (06:54→22:17)
[2022-09-17 08:00] VITALS: BP 114/57
[2022-09-17] MEDS: FUROSEMIDE 20 MG TABLET PO SCH ×2 (08:53→16:13)
[2022-09-17] MEDS: MIDODRINE HCL 5 MG TABLET PO SCH ×3 (08:53→22:05)
[2022-09-17] MEDS: ASPIRIN 81MG CHEW TAB PO SCH (08:54)
[2022-09-17 12:00] VITALS: BP 101/67
[2022-09-17 15:39] LABS: HEMATOCRIT 44.8 % (42-54)
[2022-09-17 16:00] VITALS: BP 110/62
[2022-09-17] MEDS: Vitamin B Complex/Vit C/Folic Acid PO SCH (16:12)
[2022-09-17] MEDS: CEFEPIME HCL 2 GM VIAL IVP SCH (16:12)
[2022-09-17] MEDS: PANTOPRAZOLE 40 MG/VIAL IVP SCH (16:13)
[2022-09-17] MEDS ORDERED: OCTREOTIDE ACETATE 1,250 MCG in 0.9% NACL 250ML 250 ML IV SCH (17:00)
[2022-09-17 20:14] VITALS: BP 109/68
[2022-09-17] MEDS: ATORVASTATIN 20 MG TABLET PO SCH (22:04)
[2022-09-17 22:18] LABS: HEMATOCRIT 43.3 % (42-54)
[2022-09-17 23:29] VITALS: BP 99/65
[2022-09-18 03:36] VITALS: BP 94/48
[2022-09-18 03:51] LABS: WHITE BLOOD COUNT (AUTO) 6.1 K/uL (4.8-10.8)
[2022-09-18 03:52] LABS: BASOPHILS % (AUTO) 0.5 % (0.0-5.0); EOSINOPHILS % (AUTO) 3.3 % (0.0-8.0); HEMATOCRIT 44.8 % (42-54); LYMPHOCYTES % (AUTO) 8.3 % (21.0-51.0); MEAN CORPUSCULAR HEMOGLOBIN 25.6 pg (27.0-33.0); MEAN CORPUSCULAR HGB CONC 34.2 g/dL (32.0-36.0); NEUTROPHILS % (AUTO) 71.2 % (40.0-77.0); NUCLEATED RED BLOOD CELLS 0.5 % (0.0-0.19); PLATELET COUNT (AUTO) 62 K/uL (130-400); RED BLOOD CELL COUNT(AUTO) 5.97 MIL/uL (4.50-6.20); RED CELL DISTRIBUTION WIDTH 23.2 % (11.0-15.5)
[2022-09-18 04:21] LABS: ALBUMIN 2.5 g/dL (3.5-5.0); CREATININE 2.8 mg/dL (0.5-1.5); MAGNESIUM 2.2 mg/dL (1.80-2.40); POTASSIUM 4.2 mmol/L (3.5-5.1); THYROID STIMULATING HORMONE 4.33 uIU/mL (0.36-3.74); URIC ACID 4.3 mg/dL (2.6-7.2)
[2022-09-18] MEDS: PANTOPRAZOLE 40 MG/VIAL IVP SCH ×2 (04:42→15:57)
[2022-09-18] MEDS: METRONIDAZOLE 250MG/50ML 50 ML IV SCH ×3 (04:42→21:09)
[2022-09-18] MEDS: INSULIN HUMULIN R 100 UNIT/ML 3ML SQ SCH ×4 (05:39→20:29)
[2022-09-18 08:30] VITALS: BP 112/60
[2022-09-18 08:57] LABS: HEMATOCRIT 40.9 % (42-54)
[2022-09-18] MEDS: MIDODRINE HCL 5 MG TABLET PO SCH ×3 (09:16→21:09)
[2022-09-18] MEDS: FUROSEMIDE 20 MG TABLET PO SCH ×2 (09:16→15:58)
[2022-09-18] MEDS ORDERED: 0.9% NACL 500ML IV.SOLN 500 ML IV SCH (12:00)
[2022-09-18 12:36] VITALS: BP 119/50
[2022-09-18] MEDS: ALBUMIN (HUMAN) 25% 50 ML IV SCH ×2 (13:37→21:09)
[2022-09-18 14:33] LABS: HEMATOCRIT 40.8 % (42-54)
[2022-09-18 14:43] LABS: INR 3.21 (0.85-1.15); PROTHROMBIN TIME 32.8 SEC (9.6-11.6)
[2022-09-18] MEDS: CEFEPIME HCL 2 GM VIAL IVP SCH (15:57)
[2022-09-18] MEDS: Vitamin B Complex/Vit C/Folic Acid PO SCH (15:58)
[2022-09-18 16:53] VITALS: BP 102/70
[2022-09-18 20:13] VITALS: BP 100/74
[2022-09-18] MEDS: ATORVASTATIN 20 MG TABLET PO SCH (21:09)
[2022-09-19] VITALS: BP 110/64
[2022-09-19 04:05] LABS: BASOPHILS % (AUTO) 0.2 % (0.0-5.0); EOSINOPHILS % (AUTO) 0.3 % (0.0-8.0); HEMATOCRIT 41.6 % (42-54); LYMPHOCYTES % (AUTO) 8.7 % (21.0-51.0); MEAN CORPUSCULAR HEMOGLOBIN 25.7 pg (27.0-33.0); MEAN CORPUSCULAR HGB CONC 34.9 g/dL (32.0-36.0); MEAN CORPUSCULAR VOLUME 73.6 fL (79-99); MONOCYTES % (AUTO) 13.7 % (3.0-13.0); NEUTROPHILS % (AUTO) 76.2 % (40.0-77.0); NUCLEATED RED BLOOD CELLS 0.5 % (0.0-0.19); PLATELET COUNT (AUTO) 69 K/uL (130-400); RED BLOOD CELL COUNT(AUTO) 5.65 MIL/uL (4.50-6.20); RED CELL DISTRIBUTION WIDTH 22.6 % (11.0-15.5); WHITE BLOOD COUNT (AUTO) 6.4 K/uL (4.8-10.8)
[2022-09-19 04:29] LABS: ALBUMIN 2.7 g/dL (3.5-5.0); CREATININE 3.3 mg/dL (0.5-1.5); POTASSIUM 4.2 mmol/L (3.5-5.1); TOTAL PROTEIN, SERUM 5.8 g/dL (6.0-8.3)
[2022-09-19] MEDS: PANTOPRAZOLE 40 MG/VIAL IVP SCH ×2 (04:32→15:15)
[2022-09-19] MEDS: ALBUMIN (HUMAN) 25% 50 ML IV SCH (04:34)
[2022-09-19 04:57] VITALS: BP 116/71
[2022-09-19] MEDS: METRONIDAZOLE 250MG/50ML 50 ML IV SCH ×2 (05:00→13:11)
[2022-09-19] MEDS: INSULIN HUMULIN R 100 UNIT/ML 3ML SQ SCH ×4 (06:34→21:00)
[2022-09-19] MEDS: FUROSEMIDE 20 MG TABLET PO SCH ×2 (07:27→16:10)
[2022-09-19] MEDS: MIDODRINE HCL 5 MG TABLET PO SCH ×3 (07:27→21:02)
[2022-09-19 08:23] VITALS: BP 106/61
[2022-09-19 12:17] VITALS: BP 96/61
[2022-09-19] MEDS: Vitamin B Complex/Vit C/Folic Acid PO SCH (15:15)
[2022-09-19] MEDS: CEFEPIME HCL 2 GM VIAL IVP SCH (15:15)
[2022-09-19 16:24] VITALS: BP 99/69
[2022-09-19 20:32] VITALS: BP 122/63
[2022-09-19] MEDS: ATORVASTATIN 20 MG TABLET PO SCH (21:01)
[2022-09-20 00:07] VITALS: BP 108/60
[2022-09-20] MEDS: PANTOPRAZOLE 40 MG/VIAL IVP SCH ×2 (03:23→16:37)
[2022-09-20 03:59] VITALS: BP 86/52
[2022-09-20] MEDS: INSULIN HUMULIN R 100 UNIT/ML 3ML SQ SCH ×4 (06:37→20:16)
[2022-09-20] MEDS: FUROSEMIDE 20 MG TABLET PO SCH ×2 (08:19→16:43)
[2022-09-20] MEDS: MIDODRINE HCL 5 MG TABLET PO SCH ×3 (08:19→20:16)
[2022-09-20 08:36] VITALS: BP 98/65
[2022-09-20 12:08] VITALS: BP 106/89
[2022-09-20] MEDS: Vitamin B Complex/Vit C/Folic Acid PO SCH (14:52)
[2022-09-20 16:36] VITALS: BP 104/56
[2022-09-20] MEDS: ATORVASTATIN 20 MG TABLET PO SCH (20:16)
[2022-09-21] MEDS: PANTOPRAZOLE 40 MG/VIAL IVP SCH ×2 (03:34→17:25)
[2022-09-21] MEDS: INSULIN HUMULIN R 100 UNIT/ML 3ML SQ SCH ×4 (05:26→21:00)
[2022-09-21 07:00] VITALS: BP 113/66
[2022-09-21] MEDS: MIDODRINE HCL 5 MG TABLET PO SCH ×3 (08:51→21:22)
[2022-09-21] MEDS: FUROSEMIDE 20 MG TABLET PO SCH ×2 (08:51→17:25)
[2022-09-21 11:00] VITALS: BP 98/72
[2022-09-21 12:00] VITALS: BP 108/59
[2022-09-21 16:00] VITALS: BP 126/55
[2022-09-21] MEDS: Vitamin B Complex/Vit C/Folic Acid PO SCH (17:25)
[2022-09-21 20:12] VITALS: BP 84/53
[2022-09-21] MEDS: ATORVASTATIN 20 MG TABLET PO SCH (21:22)
[2022-09-21 23:36] VITALS: BP 127/52
[2022-09-22 03:49] VITALS: BP 92/58
[2022-09-22] MEDS: PANTOPRAZOLE 40 MG/VIAL IVP SCH (04:25)
[2022-09-22 08:00] VITALS: BP 84/62
[2022-09-22] MEDS: MIDODRINE HCL 5 MG TABLET PO SCH ×3 (09:33→21:14)
[2022-09-22] MEDS: FUROSEMIDE 20 MG TABLET PO SCH (09:33)
[2022-09-22 12:00] VITALS: BP 91/47
[2022-09-22 16:00] VITALS: BP 78/47
[2022-09-22 20:30] VITALS: BP 92/48
[2022-09-22] MEDS: INSULIN HUMULIN R 100 UNIT/ML 3ML SQ SCH (21:00)
[2022-09-22] MEDS: ATORVASTATIN 20 MG TABLET PO SCH (21:14)
[2022-09-22 23:36] VITALS: BP 85/47
[2022-09-23 02:54] VITALS: BP 82/51
[2022-09-23] MEDS: PANTOPRAZOLE 40 MG/VIAL IVP SCH (04:47)
[2022-09-23] MEDS: INSULIN HUMULIN R 100 UNIT/ML 3ML SQ SCH ×2 (06:54→11:30)
[2022-09-23 08:16] VITALS: BP 80/50
[2022-09-23] MEDS: MIDODRINE HCL 5 MG TABLET PO SCH (09:23)
[2022-09-23] MEDS: FUROSEMIDE 20 MG TABLET PO SCH (09:24)
== END 2022-09-23 12:10 | disposition hospice, home (50) | DRG 871 ==
LOC: EDH 11:13 → EDHIP 16:00 → 2BH 09-10 14:26 → 2AH 09-15 22:53 → 3DH 09-21 10:54
PROVIDERS: ADMIT Internal Medicine; ATTEND Internal Medicine
PROC: 4B02XSZ Measurement of Cardiac Pacemaker, External Approach (ICD-10-PCS; 2022-09-10)
PROC: 30233K1 Transfusion of Nonautologous Frozen Plasma into Peripheral Vein, Percutaneous Approach (ICD-10-PCS; principal; 2022-09-18)
DX: A41.9 Sepsis, unspecified organism (principal); G93.41 Metabolic encephalopathy; I50.23 Acute on chronic systolic (congestive) heart failure; R57.0 Cardiogenic shock; J96.01 Acute respiratory failure with hypoxia; K72.00 Acute and subacute hepatic failure without coma; I13.0 Hypertensive heart and chronic kidney disease with heart failure and stage 1 through stage 4 chronic kidney disease, or unspecified chronic kidney disease; E87.1 Hypo-osmolality and hyponatremia; N17.9 Acute kidney failure, unspecified; E44.0 Moderate protein-calorie malnutrition; E87.20 Acidosis, unspecified; N39.0 Urinary tract infection, site not specified; R18.8 Other ascites; D68.9 Coagulation defect, unspecified; F03.918 Unspecified dementia, unspecified severity, with other behavioral disturbance; Z20.822 Contact with and (suspected) exposure to COVID-19; I25.5 Ischemic cardiomyopathy; E78.00 Pure hypercholesterolemia, unspecified; I48.0 Paroxysmal atrial fibrillation; I95.89 Other hypotension; E87.6 Hypokalemia; I25.10 Atherosclerotic heart disease of native coronary artery without angina pectoris; D69.6 Thrombocytopenia, unspecified; B96.4 Proteus (mirabilis) (morganii) as the cause of diseases classified elsewhere; Z66 Do not resuscitate; T45.515A Adverse effect of anticoagulants, initial encounter; N18.9 Chronic kidney disease, unspecified; K74.60 Unspecified cirrhosis of liver; E03.9 Hypothyroidism, unspecified; E11.22 Type 2 diabetes mellitus with diabetic chronic kidney disease; E86.1 Hypovolemia; Z95.1 Presence of aortocoronary bypass graft; Z95.0 Presence of cardiac pacemaker; Z79.01 Long term (current) use of anticoagulants; Z86.73 Personal history of transient ischemic attack (TIA), and cerebral infarction without residual deficits; Z83.3 Family history of diabetes mellitus; Z82.49 Family history of ischemic heart disease and other diseases of the circulatory system; Z79.899 Other long term (current) drug therapy
CPT/HCPCS: 36415; 36600; 70450; 71045; 76700; 80048; 80053; 80076; 81001; 82140; 82270; 82435; 82533; 82550; 82570; 82803; 82947; 82948; 83036; 83605; 83735; 83880; 83930; 83935; 84132; 84145; 84295; 84300; 84443; 84484; 84550; 85014; 85018; 85025; 85027; 85378; 85610; 85651; 85730; 86140; 86850; 86900; 86901; 86927; 87040; 87077; 87088; 87186; 87426; 87635; 87804; 93005; 93306; 93356; 93970; 97039; 99291; C9113; G0378; J0282; J0692; J1250; J1815; J1940; J2260; J2354; J2370; J3475; J3480; J3490; J7030; J7040; J7050; J7060; P9017; P9047